=== PATIENT | female | born 1930 | race Hispanic/Latino ===

== ENCOUNTER → 2019-07-30 | Day surgery (SDC) | payer MEDICARE, BC ==
[2019-07-25 10:13] LABS: BASOPHILS # (AUTO) 0.1 (0.0-0.1); BASOPHILS % 0.6 % (0.0-1.0); EOSINOPHILS # (AUTO) 0.3 (0.0-0.4); EOSINOPHILS % 3.2 % (0.0-6.0); HEMATOCRIT 37.4 % (34.2-44.1); HEMOGLOBIN 11.6 g/dL (12.0-16.0); LYMPHOCYTES # (AUTO) 1.9 (1.0-3.2); MEAN CORPUSCULAR HEMOGLOBIN 26.3 pg (28-32); MEAN CORPUSCULAR VOLUME 84.8 fL (81-99); MONOCYTES # (AUTO) 0.6 (0.2-0.8); MONOCYTES % 7.7 % (4.4-11.3); NEUTROPHILS # (AUTO) 5.3 (2.1-6.9); NEUTROPHILS % 65.1 % (38.7-80.0); PLATELET COUNT 241 x10e3/uL (140-360); RED BLOOD COUNT 4.41 x10e6/uL (3.6-5.1); RED CELL DISTRIBUTION WIDTH 14.5 % (11.7-14.4)
[2019-07-25 10:32] LABS: ALBUMIN 3.7 g/dL (3.5-5.0); ALBUMIN/GLOBULIN RATIO 0.9 (0.8-2.0); ANION GAP 13.7 mmol/L (8-16); CREATININE, SERUM 1.08 mg/dL (0.57-1.11); POTASSIUM 3.7 mmol/L (3.5-5.1)
--- NOTE | 2019-07-26 13:30 | NUR ---
Dr. Rogers notified of iodine allergy. Dr. Rogers ordered for solumedrol 125mg IV one time prior to procedure. Dr. Rogers stated okay to continue to give benadryl 50mg po before procedure.
[2019-07-30] VITALS (9 sets, daily range): BP systolic 107–159; BP diastolic 53–95
[~2019-07-30] VITALS: Ht 163.8 cm; Wt 95.3 kg
[~2019-07-30] MED LIST: ALPRAZOLAM 0.5 MG TAB ONE; AMLODIPINE BESYL5 MG PO; CLOPIDOGREL75 MG PO; DIPHENHYDRAMINE HCL 25 MG CAP ONE; FENTANYL CITRATE/PF 100MCG/2 ML INJ ONE; FOLIC ACID PO; HEPARIN SOD/SOD CHLORIDE 2,000 ML ONE; IOPAMIDOL 370 MG/ML 200 ML INFUS..BTL INJ ONE; JANUVIA100 MG PO; LEVOTHYROXINE88 MCG PO; LIDOCAINE HCL 2% LOCAL 20 ML VIAL ONE; LOSARTAN POTAS100 MG PO; METHYLPREDNISOLONE SOD SUCC 125 MG/2ML VIAL ONE; METOPROLOL TART50 MG PO; MIDAZOLAM HCL 2 MG/2 ML VIAL ONE; PANTOPRAZOLE SO40 MG PO; SODIUM CHLORIDE 0.9% 1000ML 1,000 ML ONE; TYLENOL WITH C1 EACH PO; VITAMIN B-121000 MCG PO; VITAMIN D2 PO
--- OUTSIDE RECORDS SUMMARY | 2019-07-30 11:26 | XMS REPORT ---
Author Author [facility] Address Unknown Phone Unavailable Care Team Providers Care Factory Expert Name Role Phone Unavailable Unavailable Payers Payer Name Policy Type Policy Number Effective Date Expiration Date Problems This patient has no known problems. Allergies, Adverse Reactions, Alerts Allergy Name Allergy Type Status Severity Reaction(s) Onset Date Inactive Date Treating Clinician Comments Penicillins DA Active SV 2017-10-01 00:00:00 iodine DA Active SV 2017-10-01 00:00:00 codeine DA Active W[place] 2017-10-01 00:00:00 ampicillin DA Active MO 2017-10-01 00:00:00 Medications This patient has no known medications. Results Test Description Test Time Test Comments Text Results Atomic Results Result Comments URINALYSIS COMPLETE 2018-10-19 09:30:00 UA COLOR (test code=COLU) YELLOW YELLOW UA APPEARANCE (test code=APPU) HAZY CLEAR UA GLUCOSE DIPSTICK (test code=DGLUU) norm mg/dL NEGATIVE UA BILIRUBIN DIPSTICK (test code=BILU) NEGATIVE mg/dL NEGATIVE UA KETONE DIPSTICK (test code=KETU) neg mg/dL NEGATIVE UA SPECIFIC GRAVITY (test code=SGU) 1.010 1.001-1.035 UA BLOOD DIPSTICK (test code=KIMBERLY) neg Francisco Javier/uL NEGATIVE UA PH DIPSTICK (test code=WAYNE) 5.0 5.0-8.0 UA PROTEIN DIPSTICK (test code=PROU) 15 (TRACE) mg/dL Neg-15 UA UROBILINIOGEN DIPSTICK (test code=URO) norm mg/dL 0.0-0.2 UA NITRITE DIPSTICK (test code=JOHN) NEGATIVE NEGATIVE UA LEUKOCYTE ESTERASE DIPSTICK (test code=LEUU) 100 Nick/uL (1+) uL NEGATIVE UA WBC (test code=WBCU) 0-5 per HPF 0-5 UA RBC (test code=RBCU) NONE SEEN per HPF 0-5 UA EPITHELIAL CELLS (test code=EPIU) FEW per HPF Few UA BACTERIA (test code=BACU) TRACE per HPF NONE Urine Source? Clean CatchURINALYSIS [id number] 09:24:00* Test Item Value Reference Range Comments UA COLOR (test code=COLU) YELLOW YELLOW UA APPEARANCE (test code=APPU) HAZY CLEAR UA GLUCOSE DIPSTICK (test code=DGLUU) norm mg/dL NEGATIVE UA BILIRUBIN DIPSTICK (test code=BILU) NEGATIVE mg/dL NEGATIVE UA KETONE DIPSTICK (test code=KETU) neg mg/dL NEGATIVE UA SPECIFIC GRAVITY (test code=SGU) 1.010 1.001-1.035 UA BLOOD DIPSTICK (test code=KIMBERLY) neg Francisco Javier/uL NEGATIVE UA PH DIPSTICK (test code=WAYNE) 5.0 5.0-8.0 UA PROTEIN DIPSTICK (test code=PROU) 15 (TRACE) mg/dL Neg-15 UA UROBILINIOGEN DIPSTICK (test code=URO) norm mg/dL 0.0-0.2 UA NITRITE DIPSTICK (test code=JOHN) NEGATIVE NEGATIVE UA LEUKOCYTE ESTERASE DIPSTICK (test code=LEUU) 100 Nick/uL (1+) uL NEGATIVE UA WBC (test code=WBCU) per HPF 0-5 UA RBC (test code=RBCU) per HPF 0-5 UA EPITHELIAL CELLS (test code=EPIU) per HPF Few UA BACTERIA (test code=BACU) per HPF NONE Urine Source? Clean CatchPROTHROMBIN [id number] 09:19:00* Test Item Value Reference Range Comments PROTHROMBIN TIME PATIENT (test code=PTP) 11.2 seconds 9.0-13.0 INTERNATIONAL NORMAL RATIO (test code=INR) 1.1 0.8-1.2 The therapeutic range for oral anticoagulant therapy formost indications is an international normalized ratio (INR)of between 2.0 and 3.0. The recommended therapeutic INRrange for various clinical situations is listed below: Clinical Situation INR range Pulmonary e mbolism treatment (2.0-3.0)Venous thrombosis treatmentVenous thrombosis prophylaxis (high risk surgery)Prevention of systemic embolism from: Acute myocardial infarction Valvular heart disease Atrial fibrillation Mechanical prosthetic heart valves (2.5-3.5) IS PATIENT ON ANTICOAGULANTS? NTHROMBOPLASTIN TIME [id number] 09:19:00* Test Item Value Reference Range Comments THROMBOPLASTIN TIME PARTIAL (test code=PTT) 27.7 seconds 25.5-34.3 Therapeutic Range for patients on Heparin Therapy is 2 to2.5 times their baseline PTT level. IS PATIENT ON ANTICOAGULANTS? NBASIC METABOLIC [id number] 09:13:00* Test Item Value Reference Range Comments SODIUM (test code=NA) 139 mmol/L 136-145 POTASSIUM (test code=K) 3.8 mmol/L 3.5-5.1 CHLORIDE (test code=CL) 104 mmol/L 101-109 CARBON DIOXIDE (test code=CO2) 24.8 mmol/L 21-32 ANION GAP (test code=GAP) 14 mmol/L 10-20 GLUCOSE (test code=GLU) 156 mg/dL 74-106 BLOOD UREA NITROGEN (test code=BUN) 9 mg/dL 3-21 GLOMERULAR FILTRATION RATE (test code=GFR) 46 mL/min >=60 Estimated GFR by using Modified MDRD formula.Chronic kidney disease is defined as either kidney damageor GFR <60 mL/min/1.73 m2 for >3 months. CREATININE (test code=CREAT) 1.13 mg/dL 0.55-1.3 BUN/CREATININE RATIO (test code=BUN/CREA) 8.0 10-20 CALCIUM (test code=CA) 8.4 mg/dL 8.4-10.2 HEPATIC FUNCTION [id number] 09:13:00* Test Item Value Reference Range Comments TOTAL PROTEIN (test code=PROT) 7.7 g/dL 6.5-8.4 ALBUMIN (test code=ALB) 3.5 g/dL 3.4-4.8 GLOBULIN (test code=GLOB) 4.2 G/DL 1-10 ALBUMIN/GLOBULIN RATIO (test code=A/G) 0.83 RATIO 0.75-1.50 BILIRUBIN TOTAL (test code=BILT) 0.50 mg/dL 0.0-1.0 BILIRUBIN DIRECT (test code=BILD) 0.10 mg/dL 0.0-0.30 SGOT/AST (test code=AST) 17 U/L 6-32 SGPT/ALT (test code=ALT) 15 U/L 12-78 Note: Change in REFERENCE RANGE due to new reagent method. ALKALINE PHOSPHATASE TOTAL (test code=ALKP) 129 U/L 38-126 [id number] 09:13:00* Test Item Value Reference Range Comments LIPASE (test code=LIP) 104 U/L 128-270 CBC W/O [id number] 09:03:00* Test Item Value Reference Range Comments WHITE BLOOD CELL (test code=WBC) 7.4 K/mm3 4.5-12.5 RED BLOOD CELL (test code=RBC) 4.43 mill/mm3 3.7-5.2 HEMOGLOBIN (test code=HGB) 11.4 gram/dL 11.5-15.5 HEMATOCRIT (test code=HCT) 35.5 % 36.0-46.0 MEAN CELL VOLUME (test code=MCV) 80.1 fL 80-98 MEAN CELL HGB (test code=MCH) 25.7 picogram 27.0-33.0 MEAN CELL HGB CONCETRATION (test code=MCHC) 32.1 gram/dL 33.0-36.0 RED CELL DISTRIBUTION WIDTH (test code=RDW) 15.9 % 11.6-16.2 RED CELL DISTRIBUTION WIDTH SD (test code=RDW-SD) 47.6 fL 37.0-51.0 PLATELET COUNT (test code=PLT) 251 K/mm3 150-450 MEAN PLATELET VOLUME (test code=MPV) 10.1 fL 6.7-11.0 BASIC METABOLIC [id number] 12:45:00* Test Item Value Reference Range Comments SODIUM (test code=NA) 138 mmol/L 136-145 POTASSIUM (test code=K) 3.8 mmol/L 3.5-5.1 CHLORIDE (test code=CL) 103 mmol/L 101-109 CARBON DIOXIDE (test code=CO2) 25.4 mmol/L 21-32 ANION GAP (test code=GAP) 13 mmol/L 10-20 GLUCOSE (test code=GLU) 140 mg/dL 74-106 BLOOD UREA NITROGEN (test code=BUN) 22 mg/dL 3-21 GLOMERULAR FILTRATION RATE (test code=GFR) 35 mL/min >=60 Estimated GFR by using Modified MDRD formula.Chronic kidney disease is defined as either kidney damageor GFR <60 mL/min/1.73 m2 for >3 months. CREATININE (test code=CREAT) 1.42 mg/dL 0.55-1.3 BUN/CREATININE RATIO (test code=BUN/CREA) 15.5 10-20 CALCIUM (test code=CA) 7.7 mg/dL 8.4-10.2 LACTIC [id number] 12:35:00* Test Item Value Reference Range Comments LACTIC ACID (test code=LACT) 1.3 MMOL/L 0.4-1.9 BASIC METABOLIC [id number] 11:48:00* Test Item Value Reference Range Comments SODIUM (test code=NA) 139 mmol/L 136-145 POTASSIUM (test code=K) 3.9 mmol/L 3.5-5.1 CHLORIDE (test code=CL) 99 mmol/L 101-109 CARBON DIOXIDE (test code=CO2) 20.7 mmol/L 21-32 ANION GAP (test code=GAP) 23 mmol/L 10-20 GLUCOSE (test code=GLU) 193 mg/dL 74-106 BLOOD UREA NITROGEN (test code=BUN) 24 mg/dL 3-21 GLOMERULAR FILTRATION RATE (test code=GFR) 30 mL/min >=60 Estimated GFR by using Modified MDRD formula.Chronic kidney disease is defined as either kidney damageor GFR <60 mL/min/1.73 m2 for >3 months. CREATININE (test code=CREAT) 1.62 mg/dL 0.55-1.3 BUN/CREATININE RATIO (test code=BUN/CREA) 14.8 10-20 CALCIUM (test code=CA) 8.8 mg/dL 8.4-10.2 URINALYSIS [id number] 11:10:00* Test Item Value Reference Range Comments UA COLOR (test code=COLU) YELLOW YELLOW UA APPEARANCE (test code=APPU) SLIGHT HAZY CLEAR UA GLUCOSE DIPSTICK (test code=DGLUU) norm mg/dL NEGATIVE UA BILIRUBIN DIPSTICK (test code=BILU) NEGATIVE mg/dL NEGATIVE UA KETONE DIPSTICK (test code=KETU) neg mg/dL NEGATIVE UA SPECIFIC GRAVITY (test code=SGU) 1.030 1.001-1.035 UA BLOOD DIPSTICK (test code=KIMBERLY) neg Francisco Javier/uL NEGATIVE UA PH DIPSTICK (test code=WAYNE) 5.0 5.0-8.0 UA PROTEIN DIPSTICK (test code=PROU) 15 (TRACE) mg/dL Neg-15 UA UROBILINIOGEN DIPSTICK (test code=URO) norm mg/dL 0.0-0.2 UA NITRITE DIPSTICK (test code=JOHN) NEGATIVE NEGATIVE UA LEUKOCYTE ESTERASE DIPSTICK (test code=LEUU) NEGATIVE uL NEGATIVE UA WBC (test code=WBCU) 0-5 per HPF 0-5 UA RBC (test code=RBCU) 0-3 per HPF 0-5 UA EPITHELIAL CELLS (test code=EPIU) Rare (0-1/hpf) per HPF Few UA BACTERIA (test code=BACU) TRACE per HPF NONE URINALYSIS W/O [id number] 11:10:00* Test Item Value Reference Range Comments UA LEUKOCYTE ESTERASE W REFLEX (test code=LEUUR) NEGATIVE NEGATIVE URINALYSIS [id number] 10:55:00* Test Item Value Reference Range Comments UA COLOR (test code=COLU) YELLOW YELLOW UA APPEARANCE (test code=APPU) SLIGHT HAZY CLEAR UA GLUCOSE DIPSTICK (test code=DGLUU) norm mg/dL NEGATIVE UA BILIRUBIN DIPSTICK (test code=BILU) NEGATIVE mg/dL NEGATIVE UA KETONE DIPSTICK (test code=KETU) neg mg/dL NEGATIVE UA SPECIFIC GRAVITY (test code=SGU) 1.030 1.001-1.035 UA BLOOD DIPSTICK (test code=KIMBERLY) neg Francisco Javier/uL NEGATIVE UA PH DIPSTICK (test code=WAYNE) 5.0 5.0-8.0 UA PROTEIN DIPSTICK (test code=PROU) 15 (TRACE) mg/dL Neg-15 UA UROBILINIOGEN DIPSTICK (test code=URO) norm mg/dL 0.0-0.2 UA NITRITE DIPSTICK (test code=JOHN) NEGATIVE NEGATIVE UA LEUKOCYTE ESTERASE DIPSTICK (test code=LEUU) uL NEGATIVE UA WBC (test code=WBCU) per HPF 0-5 UA RBC (test code=RBCU) per HPF 0-5 UA EPITHELIAL CELLS (test code=EPIU) per HPF Few UA BACTERIA (test code=BACU) per HPF NONE URINALYSIS W/O [id number] 10:55:00* Test Item Value Reference Range Comments UA LEUKOCYTE ESTERASE W REFLEX (test code=LEUUR) NEGATIVE URINALYSIS [id number] 10:55:00* Test Item Value Reference Range Comments UA COLOR (test code=COLU) YELLOW YELLOW UA APPEARANCE (test code=APPU) SLIGHT HAZY CLEAR UA GLUCOSE DIPSTICK (test code=DGLUU) norm mg/dL NEGATIVE UA BILIRUBIN DIPSTICK (test code=BILU) NEGATIVE mg/dL NEGATIVE UA KETONE DIPSTICK (test code=KETU) neg mg/dL NEGATIVE UA SPECIFIC GRAVITY (test code=SGU) 1.030 1.001-1.035 UA BLOOD DIPSTICK (test code=KIMBERLY) neg Francisco Javier/uL NEGATIVE UA PH DIPSTICK (test code=WAYNE) 5.0 5.0-8.0 UA PROTEIN DIPSTICK (test code=PROU) 15 (TRACE) mg/dL Neg-15 UA UROBILINIOGEN DIPSTICK (test code=URO) norm mg/dL 0.0-0.2 UA NITRITE DIPSTICK (test code=JOHN) NEGATIVE NEGATIVE UA LEUKOCYTE ESTERASE DIPSTICK (test code=LEUU) uL NEGATIVE UA WBC (test code=WBCU) per HPF 0-5 UA RBC (test code=RBCU) per HPF 0-5 UA EPITHELIAL CELLS (test code=EPIU) per HPF Few UA BACTERIA (test code=BACU) per HPF NONE URINALYSIS W/O [id number] 10:55:00* Test Item Value Reference Range Comments UA LEUKOCYTE ESTERASE W REFLEX (test code=LEUUR) NEGATIVE - CT ABD PELVIS [id number] 10:30:00 Name: CAROLE RODRIGUEZ [facility] : 1930 Age/S: 88 / F [address] [facility] Unit #: [id number] Loc: Roland Ar[place] [address] Phys: Annelise Abdullahi MD Acct: [id number] Dis Date: Status: REG ER PHONE #: [phone] Exam Date: 10/06/2018 09 FAX #: [phone] Reason: AP elevated lactate eval for mesenteric ischemi EXAMS: CPT CODE: [id number] CT ABD PELVIS W/CONT [id number] REASON FOR EXAM: AP elevated lactate eval for mesenteric ischemia EXAM ORDER DATE: 10/06/2018 9:22 AM Ordering Remington: Annelise Abdullahi MD PROCEDURE: - CT ABD PELVIS W/CONT COMPARISON: FINDINGS: CT images of the abdomen and pelvis were obtained with IV and without oral contrast at 5mm. Dose modulation, iterative reconstruction, and/or weight based adjustment of the MA/KV was utilized to reduce the radiation dose to as low as reasonably achievable. Intravenous contrast: 100cc of Omnipaque 370. The liver, spleen, pancreas are grossly within normal limits. The patient is status post cholecystectomy A subcentimeter cyst seen in the midpole of the right kidney The urinary bladder is unremarkable. The colon, small bowel, and stomach are within normal limits without evidence of obstruction. The appendix is unremarkable. No evidence of free air or free fluid. 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 at 1030 Reported a nd signed by: Milton Lao M.D. CC: Annelise Abdullahi MD Technologist:Oumou Drake CTDI: DLP: Trnscb Date/Time: 10/06/2018 (1030) KevynL Orig Print D/T: S: 10/06/2018 (2343) PAGE 1 Signed Report COMPREHENSIVE METABOLIC [id number] 09:29:00* Test Item Value Reference Range Comments SODIUM (test code=NA) 138 mmol/L 136-145 POTASSIUM (test code=K) 3.9 mmol/L 3.5-5.1 CHLORIDE (test code=CL) 101 mmol/L 101-109 CARBON DIOXIDE (test code=CO2) 27.1 mmol/L 21-32 ANION GAP (test code=GAP) 14 mmol/L 10-20 GLUCOSE (test code=GLU) 195 mg/dL 74-106 BLOOD UREA NITROGEN (test code=BUN) 23 mg/dL 3-21 CREATININE (test code=CREAT) 1.62 mg/dL 0.55-1.3 BUN/CREATININE RATIO (test code=BUN/CREA) 14.2 10-20 TOTAL PROTEIN (test code=PROT) 8.6 g/dL 6.5-8.4 ALBUMIN (test code=ALB) 3.8 g/dL 3.4-4.8 GLOBULIN (test code=GLOB) 4.8 G/DL 1-10 ALBUMIN/GLOBULIN RATIO (test code=A/G) 0.79 RATIO 0.75-1.50 CALCIUM (test code=CA) 8.7 mg/dL 8.4-10.2 BILIRUBIN TOTAL (test code=BILT) 0.60 mg/dL 0.0-1.0 SGOT/AST (test code=AST) 15 U/L 6-32 SGPT/ALT (test code=ALT) 15 U/L 12-78 Note: Change in REFERENCE RANGE due to new reagent method. ALKALINE PHOSPHATASE TOTAL (test code=ALKP) 150 U/L 38-126 [id number] 09:29:00* Test Item Value Reference Range Comments LIPASE (test code=LIP) 82 U/L 128-270 [id number] 09:29:00* Test Item Value Reference Range Comments MAGNESIUM (test code=MAG) 1.7 mg/dL 1.6-2.3 CPK-MB [id number] 09:29:00* Test Item Value Reference Range Comments CREATINE KINASE (CK) (test code=CK) 50 U/L 26-192 CKMB (test code=CKMBT) <0.5 ng/mL 0.0-5.0 RELATIVE % INDEX (test code=REL%) 1.0 % [id number] 09:29:00* Test Item Value Reference Range Comments TROPONIN-I (test code=TROPI) <0.015 ng/mL 0.00-0.056 LACTIC [id number] 09:22:00* Test Item Value Reference Range Comments LACTIC ACID (test code=LACT) 2.9 MMOL/L 0.4-1.9 Results called to EG by MALAIKAHP 10/06/18 0922Critical results verified and read back by Nurse? Y - XR CHEST 1 [id number] 09:21:00 Name: CAROLE RODRIGUEZ [facility] : 1930 Age/S:88 /F [address] [facility] Unit#:[id number] Loc: Roland Ortiz [address] Phys: Annelise Abdullahi MD Dis Date: PHONE #: [phone] Status: REG ER FAX #: [phone] Exam Date: 10/06/2018 Reason: AP EXAMS: CPT CODE: [id number] XR CHEST 1 V [id number] REASON FOR EXAM: AP EXAM ORDER DATE: 10/06/2018 8:49 AM Ordering M.Wyatt: Annelise Abdullahi MD PROCEDURE: - XR CHEST 1 V COMPARISON: 02/20/2017 FINDINGS: Portable AP frontal view of the chest obtained at 8:57 AM shows clear lungs without evidence of consolidation. There is no evidence of effusion. The heart size is within normal limits. 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 Pulmonary vasculatures are unremarkable. IMPRESSION: No active disease. at 0921 Reported and signed by: Milton Lao M.D. CC: Titi Sheridan MD; Annelise Abdullahi MD Technologist: Oumou Drake Trnscrpt Data: 10/06/2018 (920) Aquiles Orig Print D/T: S: 10/06/2018 (4417) PAGE 1 Signed Report CBC W/AUTO [id number] 09:10:00* Test Item Value Reference Range Comments WHITE BLOOD CELL (test code=WBC) 7.8 K/mm3 4.5-12.5 RED BLOOD CELL (test code=RBC) 4.81 mill/mm3 3.7-5.2 HEMOGLOBIN (test code=HGB) 12.3 gram/dL 11.5-15.5 HEMATOCRIT (test code=HCT) 39.2 % 36.0-46.0 MEAN CELL VOLUME (test code=MCV) 81.5 fL 80-98 MEAN CELL HGB (test code=MCH) 25.6 picogram 27.0-33.0 MEAN CELL HGB CONCETRATION (test code=MCHC) 31.4 gram/dL 33.0-36.0 RED CELL DISTRIBUTION WIDTH (test code=RDW) 15.4 % 11.6-16.2 RED CELL DISTRIBUTION WIDTH SD (test code=RDW-SD) 46.6 fL 37.0-51.0 PLATELET COUNT (test code=PLT) 275 K/mm3 150-450 MEAN PLATELET VOLUME (test code=MPV) 10.0 fL 6.7-11.0 NEUTROPHIL % (test code=NT%) 65.4 % 39.0-69.0 LYMPHOCYTE % (test code=LY%) 26.1 % 25.0-55.0 MONOCYTE % (test code=MO%) 6.6 % 0.0-10.0 EOSINOPHIL % (test code=EO%) 1.3 % 0.0-5.0 BASOPHIL % (test code=BA%) 0.5 % 0.0-1.0 NEUTROPHIL # (test code=NT#) 5.09 K/mm3 1.8-7.7 LYMPHOCYTE # (test code=LY#) 2.03 K/mm3 1.0-5.0 MONOCYTE # (test code=MO#) 0.51 K/mm3 0-0.8 EOSINOPHIL # (test code=EO#) 0.10 K/mm3 0.0-0.5 BASOPHIL # (test code=BA#) 0.04 K/mm3 0.0-0.2 MANUAL DIFF REQUIRED (test code=MDIFF) NO
--- NOTE | 2019-07-30 11:45 | NUR ---
pt in ACU 8, prepped for procedure. Alert oriented and appropriate, PERRLA, respirations even and unlabored to room air. Pulses x4 extremities equal and palpable. Cap fill brisk < 3 sec. Skin warm and dry integrity appears intact in general. IV started and presents healthy w/o s/s of infiltration or complaint. Abdomen soft and supple. pt offered toileting, denies need to urinate or defecate. Personal affects with patient. Family at bedside. Pt and family verbalizes understanding of POC. Educated registration scheduling specialist light use after pre-Op Meds benadryl and xanax given. bed low and locked, side rails up x2 and call light at side. [place]waiting [place] physician [place] [place] Add[place]um: 07/30/19 at 1210 by Kane Hummel RN solu-medrol 125mg given IV
--- NOTE | 2019-07-30 14:53 | NUR ---
continuity of care by Terrence arellano RN from procedural room. drowsy, easily aroused oriented and appropriate, PERRLA, respirations even and unlabored to room air. Skin warm and dry integrity appears intact. IV 20g to left hand presents healthy w/o s/s of infiltration or complaint. Abdomen soft and supple. pt offered toileting, denies need to urinate or defecate. personal affects with patient. Family at bedside. Pt and family verbalizes understanding of POC. being observed on bedside telemetry. Currently w/o complaint of pain or need. bed low and locked, side rails up x2, call light within reach.-cgf
--- NOTE | 2019-07-30 16:45 | NUR ---
Dr Rogers to room speaking with patient and family.
--- NOTE | 2019-07-30 17:00 | NUR ---
Pt meets DC criteria. right groin assessed for s/s of complication and presence of hematoma. general skin warm, dry, no discolor, and pulses present. IV removed from left hand. Distal tip appears intact. VS WNL. Pt denies pain, sob, or need at this time. Family at bedside. Review of discharge paperwork and follow up instructions. verbalized understanding. Pt to wheelchair and transported to front of hospital. Transferred to private vehicle under own strength w/o incident with DC paperwork in hand. - cgf
--- NOTE | 2019-07-30 21:08 | Operative Report ---
DATE OF PROCEDURE: 07/30/2019 SURGEON: Garrett Rogers MD CARDIAC BETA TESTER PROCEDURE INDICATION: Coronary artery disease, abnormal stress test. PROCEDURES PERFORMED: 1. Left heart catheterization, selective coronary angiography. 2. Deployment of right groin Mynx closure device. COMPLICATIONS: None. RECOMMENDATIONS: Medical therapy. DESCRIPTION OF PROCEDURE: Access obtained in the right femoral artery. A 6-Tajik sheath was placed. Coronary angiography demonstrated patent stent in the left anterior descending artery, left main circumflex and remaining LAD had mild disease. A 20% to 30% right coronary artery had multiple stents, 50% in-stent restenosis, LV end-diastolic pressure of 14, no gradient across the aortic valve pullback. No intervention deemed necessary. Right groin Mynx closure device applied. The patient discharged home on same day. Garrett Rogers MD KSB/MODL /[id number]
== END | disposition home or self-care (01) ==
LOC: CATH LAB 11:19
PROVIDERS: ATTEND Internal Medicine Interventional Cardiology
DX: R94.39 Abnormal result of other cardiovascular function study (principal); I25.118 Atherosclerotic heart disease of native coronary artery with other forms of angina pectoris; Z95.5 Presence of coronary angioplasty implant and graft; I25.2 Old myocardial infarction; E10.9 Type 1 diabetes mellitus without complications; I10 Essential (primary) hypertension; Z82.49 Family history of ischemic heart disease and other diseases of the circulatory system; Z88.0 Allergy status to penicillin; Z88.6 Allergy status to analgesic agent; Z91.041 Radiographic dye allergy status; Z01.812 Encounter for preprocedural laboratory examination; Z79.02 Long term (current) use of antithrombotics/antiplatelets; Z79.84 Long term (current) use of oral hypoglycemic drugs; Z68.33 Body mass index [BMI] 33.0-33.9, adult; Z95.0 Presence of cardiac pacemaker
CPT/HCPCS: 36415; 80053; 85025; 93458; C1760; C1769; J2001; J2250; J2930; J3010; J7030; Q9967; 99152; 99153